=== PATIENT | male | born 1945 ===

== ENCOUNTER 2023-05-06 11:21 | Emergency (ER) | payer SELFPAY ==
--- NOTE | 2023-05-06 12:00 | ER ---
Nurse's Notes [facility] Name: Estevan Schneider Age: 78 yrs Sex: Male : 1945 Arrival Date: 05/06/2023 Time: : Bed Waiting Private MD: Diagnosis: ED Course: 05/06 11:25 Patient arrived in ED. im 11:28 Jose Roberto Steve MD is Attending Physician. jean carlos 11:53 Radiology exam delayed due to pt not in lobby at this time. ls3 11:53 not in lobby, left before triage. ll1 Administered Medications: No medications were administered Outcome: 11:59 Patient left the ED. 1 Signatures: Jose Roberto Steve MD MD cha Siler, Lynzie ls3 Lily De La Rosa RN RN ll1 Cyndi Aguero im
== END 2023-05-06 11:59 | disposition left against medical advice (07) ==
LOC: ER 11:21
DX: Z02.9 Encounter for administrative examinations, unspecified (principal)